=== PATIENT | female | born 1995 | race Hispanic/Latino ===

== ENCOUNTER 2020-09-07 22:36 | Emergency (ER) | payer MEDICAID ==
[2020-09-08 00:39] VITALS: BP 129/83
[2020-09-08] MEDS ORDERED: dexAMETHasone 20 MG/5 ML VIAL IM ONE (03:37)
[2020-09-08] MEDS ORDERED: diphenhydrAMINE 25 MG CAP PO ONE (03:37)
[2020-09-08] MEDS ORDERED: ACETAMINOPHEN 500 MG TAB PO ONE (03:37)
[2020-09-08] MEDS ORDERED: METOCLOPRAMIDE 10 MG TAB PO ONE (03:37)
--- NOTE | 2020-09-08 04:41 | Emergency Department Report ---
ED Headache HPI - General Chief Complaint: Headache Stated Complaint: HEAD/LT LEG PAIN Time Seen by Provider: 09/08/20 03:37 - History of Present Illness Initial Comments: Patient is a 25-year-old female with a history of migraine headaches who presents for headache frontal x3 days. This is her usual headache location and intensity. Patient denies fever or chills is no nausea vomiting. This is not the worst headache ever. Symptoms are exacerbated by activity and movement. Symptoms are relieved by nothing. There is no loss or decrease in bowel or bladder function. Timing/Duration: waxing and waning Quality: moderate Head Injury Location: frontal Modifying Factors: improves with: medication Associated Symptoms: denies symptoms Allergies/Adverse Reactions: Allergies No Known Allergies Allergy (Unverified 09/08/20 00:33) Home Medications: Ambulatory Orders Acetaminophen [Non-Aspirin Pain Relief] 1,000 mg PO Q6H PRN #30 tablet 09/08/20 Metoclopramide [Reglan] 10 mg PO Q6H PRN #30 tablet 09/08/20 diphenhydrAMINE [Benadryl CAP] 25 mg PO Q6HR PRN #30 capsule 09/08/20 ED Review of Systems ROS: Stated complaint: HEAD/LT LEG PAIN Other details as noted in HPI Constitutional: denies: chills, fever Eyes: denies: eye pain, eye discharge, vision change ENT: denies: ear pain, throat pain Respiratory: denies: cough, shortness of breath, wheezing Cardiovascular: denies: chest pain, palpitations Endocrine: no symptoms reported Gastrointestinal: denies: abdominal pain, nausea, diarrhea Genitourinary: denies: urgency, dysuria, discharge Musculoskeletal: denies: back pain, joint swelling, arthralgia Skin: denies: rash, lesions Neurological: headache. denies: weakness, numbness, paresthesias, confusion, vertigo Psychiatric: denies: anxiety, depression Hematological/Lymphatic: denies: easy bleeding, easy bruising ED Past Medical Hx - Past Medical History Previous Medical History?: No - Surgical History Past Surgical History?: Yes Additional Surgical History: nasal surgery. left leg - Social History Smoking Status: Current Some Day Smoker - Medications Home Medications: Home Medications Medication Instructions Recorded Confirmed Last Taken Type Acetaminophen [Non-Aspirin Pain 1,000 mg PO Q6H PRN #30 tablet 09/08/20 Unknown Rx Relief] Metoclopramide [Reglan] 10 mg PO Q6H PRN #30 tablet 09/08/20 Unknown Rx diphenhydrAMINE [Benadryl CAP] 25 mg PO Q6HR PRN #30 capsule 09/08/20 Unknown Rx ED Physical Exam - General Limitations: No Limitations General appearance: alert, in no apparent distress - Head Head exam: Present: atraumatic, normocephalic - Eye Eye exam: Present: normal appearance, PERRL, EOMI. Absent: conjunctival injection, nystagmus Pupils: Present: normal accommodation - ENT ENT exam: Present: mucous membranes moist - Neck Neck exam: Present: normal inspection, full ROM. Absent: tenderness - Respiratory Respiratory exam: Present: normal lung sounds bilaterally. Absent: respiratory distress, wheezes - Cardiovascular Cardiovascular Exam: Present: regular rate, normal rhythm, normal heart sounds. Absent: systolic murmur, diastolic murmur, rubs, gallop - GI/Abdominal GI/Abdominal exam: Present: soft, normal bowel sounds - Rectal Rectal exam: Present: deferred - Extremities Exam Extremities exam: Present: normal inspection, full ROM. Absent: tenderness - Back Exam Back exam: Present: normal inspection, full ROM. Absent: paraspinal tenderness, vertebral tenderness - Neurological Exam Neurological exam: Present: alert, oriented X3, CN II-XII intact, normal gait, reflexes normal. Absent: motor sensory deficit - Expanded Neurological Exam Expanded Patient oriented to: Present: person, place, time Speech: Present: fluid speech Cranial nerves: EOM's Intact: Normal Motor strength exam: RUE: 5, LUE: 5, RLE: 5, LLE: 5 Best Eye Response ([place]): (4) open spontaneously Best Motor Response ([place]): (6) obeys commands Best Verbal Response ([place]): (5) oriented [place] Total: 15 - Psychiatric Psychiatric exam: Present: normal affect, normal mood - Skin Skin exam: Present: warm, dry, intact, normal color. Absent: rash ED Course Vital Signs 09/08/20 00:35 Temperature 99.1 F Pulse Rate 96 H Respiratory 20 Rate Blood Pressure 129/83 O2 Sat by Pulse 96 Oximetry ED Medical Decision Making - Medical Decision Making headache improved, plan dc to home with rx , follow up with pcp in 2-3 days, pt is currently a/o x 3 ambulatory with steady gait, and nad. Critical care attestation.: If time is entered above; I have spent that time in minutes in the direct care of this critically ill patient, excluding procedure time. ED Disposition Clinical Impression: Headache Qualifiers: Headache type: cluster Headache chronicity pattern: chronic headache Intractability: not intractable Qualified Code(s): G44.029 - Chronic cluster headache, not intractable Disposition: DC- TO HOME OR SELFCARE Is pt being admited?: No Does the pt Need Aspirin: No Condition: Stable Instructions: Cluster Headache Additional Instructions: take medications as prescribed, follow up with your doctor, return to emergency if symptoms worsen. Prescriptions: diphenhydrAMINE [Benadryl CAP] 25 mg PO Q6HR PRN #30 capsule PRN Reason: Headache Acetaminophen [Non-Aspirin Pain Relief] 1,000 mg PO Q6H PRN #30 tablet PRN Reason: pain Metoclopramide [Reglan] 10 mg PO Q6H PRN #30 tablet PRN Reason: headache Referrals: GUEVARA CORBETT MD [Primary Care Provider] - 3-5 Days Forms: Work/School Release Form(ED) Time of Disposition: 04:48
== END 2020-09-08 05:00 | disposition home or self-care (01) ==
LOC: ED 22:36
DX: R51.9 Headache, unspecified (principal); F17.200 Nicotine dependence, unspecified, uncomplicated; Z98.890 Other specified postprocedural states
CPT/HCPCS: 96372; 99282; J1100